=== PATIENT | male | born 1955 | race African-American/Black ===

== ENCOUNTER 2019-02-25 14:49 | Inpatient (IN) | payer MEDICAID ==
[~2019-02-25] VITALS: Ht 182.9 cm; Wt 99.8 kg
[2019-02-25] MEDS ORDERED: METFORMIN HCL500 M1 ORAL (14:55)
[2019-02-25 15:03] VITALS: BP 137/86
--- NOTE | 2019-02-25 15:03 | NUR ---
ED Nurse Note: PT BROUGHT IN BY RA [address] DUE TO FEELING OF WEAKNESS AFTER DRINKING 6 CANS OF BEER. HX OF DM. BS CHECK 129 PER EMS. AAO X4, AMBULATORY WITH NON LABORED BREATHING. NOTED SLURRING OF SPEECH.
--- NOTE | 2019-02-25 15:09 | Emergency Room Report ---
History of Present Illness General Chief Complaint: Generalized Weakness Source: EMS Present Illness HPI Disclaimer: Please note that this report is being documented using DRAGON technology. This can lead to erroneous entry secondary to incorrect interpretation by the dictating instrument. HPI: 63-year-old male with a history of diabetes, daily alcohol use, daily tobacco use presents for evaluation of generalized weakness. The patient is homeless and was brought in by EMS. He called stating he felt generally unwell and dehydrated. He admits to drinking approximately 6 beers today and states he drinks approximately 10 beers daily. He smokes cigarettes daily. He is complaining of mild shortness of breath. He is requesting something to eat and drink. He states he just feels "tired." Denies any specific complaints and denies any headache, visual changes, sore throat, fever, chills, chest pain, cough, abdominal pain, vomiting, diarrhea or recent rash. Denies swelling in the lower extremities. He was previously on metformin but has not been taking it for several years. Does not take any medications regularly anymore. PMH: Diabetes, alcohol use disorder PSH: Denies Allergies: None listed Social Hx: Daily alcohol use, daily tobacco use. Denies drug use Allergies: Coded Allergies: No Known Allergies (Unverified , 02/25/19) Nursing Documentation-PMH Past Medical History: No History, Except For Hx Diabetes: Yes Review of Systems All Other Systems: negative except mentioned in HPI Physical Exam Vital Signs Date Time Temp Pulse Resp B/P (MAP) Pulse Ox O2 Delivery O2 Flow Rate FiO2 02/25/19 14:53 97.9 110 18 149/95 (113) 99 Room Air General: Awake and alert, no acute distress, disheveled and unkempt HEENT: NC/AT. EOMI. dry mucous membranes. Poor dentition. Cardiovascular: Tachycardic. S1 and S2 normal. No murmur appreciated Resp: Normal work of breathing. No cough, wheezing or crackles appreciated Abdomen: Abdomen is soft, nondistended. Nontender Skin: Intact. No abrasions, laceration or rash over the exposed skin MSK: Normal tone and bulk. Moving all extremities. No obvious deformity. No lower extremity edema Neuro: Awake and alert. Mentating appropriately. No dysarthria. No facial droop. Able to ambulate safely. Medical Decision Making Diagnostic Impression: Primary Impression: Episode of generalized weakness Additional Impression: Elevated troponin ER Course 63-year-old male with history of daily alcohol use, diabetes with medication noncompliance for several years presents for evaluation of general weakness. Differential includes was not limited to dehydration, alcohol use, angina, ACS, medication noncompliance, electrolyte abnormality. He is requesting something to eat and drink and states he is dehydrated after drinking 6 beers earlier today and sitting out in the hot sun. It is in the mid 90s today and the patient is homeless. Will provide IV oral hydration as well as something to eat well we perform a metabolic work-up and obtain a chest x-ray and EKG as well for his complaint of weakness and exertional dyspnea. States he always feels somewhat short of breath but this is worse today. Laboratory Tests Test 02/25/19 15:25 02/25/19 15:35 02/25/19 18:40 Prothrombin Time 9.8 SEC (9.30-11.50) Prothrombin Time INR 0.9 (0.9-1.1) PTT 26 SEC (23-33) White Blood Count 4.5 K/UL (4.8-10.8) L Red Blood Count 4.05 M/UL (4.70-6.10) L Hemoglobin 13.4 G/DL (14.2-18.0) L Hematocrit 38.8 % (42.0-52.0) L Mean Corpuscular Volume 96 FL (80-99) Mean Corpuscular Hemoglobin 33.0 PG (27.0-31.0) H Mean Corpuscular Hemoglobin Concent 34.4 G/DL (32.0-36.0) Red Cell Distribution Width 10.9 % (11.6-14.8) L Platelet Count 321 K/UL (150-450) Mean Platelet Volume 6.8 FL (6.5-10.1) Neutrophils (%) (Auto) 44.3 % (45.0-75.0) L Lymphocytes (%) (Auto) 40.8 % (20.0-45.0) Monocytes (%) (Auto) 10.4 % (1.0-10.0) H Eosinophils (%) (Auto) 2.2 % (0.0-3.0) Basophils (%) (Auto) 2.2 % (0.0-2.0) H Urine Color Yellow Urine Appearance Clear Urine pH 5 (4.5-8.0) Urine Specific [place] 1.015 (1.005-1.035) Urine Protein 1+ (NEGATIVE) H Urine Glucose (UA) Negative (NEGATIVE) Urine Ketones Negative (NEGATIVE) Urine Blood 1+ (NEGATIVE) H Urine Nitrite Negative (NEGATIVE) Urine Bilirubin Negative (NEGATIVE) Urine Urobilinogen Normal MG/DL (0.0-1.0) Urine Leukocyte Esterase Negative (NEGATIVE) Urine RBC 0-2 /HPF (0 - 0) H Urine WBC 0-2 /HPF (0 - 0) Urine Squamous Epithelial Cells None /LPF (NONE/OCC) Urine Bacteria None /HPF (NONE) Sodium Level 146 MMOL/L (136-145) H Potassium Level 3.6 MMOL/L (3.5-5.1) Chloride Level 107 MMOL/L (98-107) Carbon Dioxide Level 24 MMOL/L (21-32) Anion Gap 15 mmol/L (5-15) Blood Urea Nitrogen 5 mg/dL (7-18) L Creatinine 0.9 MG/DL (0.55-1.30) Estimate Glomerular Filtration Rate > 60 mL/min (>60) Glucose Level 135 MG/DL (74-106) H Calcium Level 9.1 MG/DL (8.5-10.1) Total Bilirubin 0.4 MG/DL (0.2-1.0) Aspartate Amino Transferase (AST) 119 U/L (15-37) H Alanine Aminotransferase (ALT) 106 U/L (12-78) H Alkaline Phosphatase 59 U/L (46-116) Total Creatine Kinase 553 U/L (26-308) H Creatine Kinase MB 3.1 NG/ML (0.0-3.6) Creatine Kinase MB Relative Index 0.5 Troponin I 0.061 ng/mL (0.000-0.056) Pending Pro-B-Type Natriuretic Peptide 162 pg/mL (0-125) H Total Protein 7.2 G/DL (6.4-8.2) Albumin 3.7 G/DL (3.4-5.0) Globulin 3.5 g/dL Albumin/Globulin Ratio 1.1 (1.0-2.7) EKG Diagnostic Results EKG Time: 15:34 Rate: tachycardiac Rhythm: NSR ST Segments: no acute changes Other Impression Sinus rhythm, normal axis, normal intervals, no ST segment changes. PA Scribe Text EKG #2: [id number] Sinus rhythm, normal axis, normal intervals, no ST segment changes. Unchanged from first EKG. Rhythm Strip Diag. Results Rhythm Strip Time: 15:34 EP Interpretation: yes Rate: 100 Rhythm: NSR, no PVC's, no ectopy Chest X-Ray Diagnostic Results Chest X-Ray Diagnostic Results : Chest X-Ray Ordered: Yes Indication: Shortness of Breath EP Interpretation: Yes Interpretation: no consolidation, no effusion, no pneumothorax, no acute cardiopulmonary disease Impression: No acute disease CT/MRI/US Diagnostic Results CT/MRI/US Diagnostic Results : Impression Preliminary Findings Only See Final Report For Complete Findings CTA CHEST With Contrast: No pulmonary embolus identified. No aortic aneurysm or dissection. No acute pulmonary parenchymal abnormality identified. Borderline size of the heart. Mild bilateral gynecomastia. Hepatic steatosis. Probable hemangioma in the right liver. Small splenule. Radiologist: Miky Mclaughlin M.D. Reevaluation Time: 18:56 Last Vital Signs Date Time Temp Pulse Resp B/P (MAP) Pulse Ox O2 Delivery O2 Flow Rate FiO2 02/25/19 14:53 97.9 110 18 149/95 (113) 99 Room Air Reevaluation Impression Initial elevated troponin 0.061. The patient's EKG was unchanged. He remains slightly tachycardic and was complaining of shortness of breath and a CTA was ordered. No evidence of dissection or PE. Second troponin is pending. Patient 's vital signs are stable though remains slightly tachycardic. Started on heparin drip. Will admit to telemetry for further work-up and management. 2000: Patient second troponin was slightly higher than the first at 0.068. Will be admitted for monitoring and further intervention as needed. Vital signs remained stable. Disposition: ADMITTED INPATIENT Condition: Serious Giuseppe Ramírez MD Feb 25, 2019 15:09
--- NOTE | 2019-02-25 15:34 | NUR ---
ED Nurse Note: COLLECTED BLOOD/URINE THEN SENT.
[2019-02-25 15:59] LABS: BASOPHILS % (AUTO) 2.2 % (0.0-2.0); EOSINOPHILS % (AUTO) 2.2 % (0.0-3.0); HEMATOCRIT 38.8 % (42.0-52.0); HEMOGLOBIN 13.4 G/DL (14.2-18.0); LYMPHOCYTES % (AUTO) 40.8 % (20.0-45.0); MEAN CORPUSCULAR VOLUME 96 FL (80-99); MONOCYTES % (AUTO) 10.4 % (1.0-10.0); NEUTROPHILS % (AUTO) 44.3 % (45.0-75.0); PLATELET COUNT 321 K/UL (150-450); RED BLOOD COUNT 4.05 M/UL (4.70-6.10); RED CELL DISTRIBUTION WIDTH 10.9 % (11.6-14.8); WHITE BLOOD COUNT 4.5 K/UL (4.8-10.8)
[2019-02-25 16:01] LABS: APPEARANCE,URINE CLEAR; BILIRUBIN, URINE NEGATIVE (NEGATIVE); GLUCOSE, URINE (UA) NEGATIVE (NEGATIVE); KETONES,URINE NEGATIVE (NEGATIVE); LEUKOCYTE ESTERASE ,URINE NEGATIVE (NEGATIVE); NITRITE,URINE NEGATIVE (NEGATIVE); PH,URINE 5 (4.5-8.0); PROTEIN,URINE 1+ (NEGATIVE); UROBILINOGEN,URINE NORMAL MG/DL (0.0-1.0)
[2019-02-25 16:02] LABS: COLOR,URINE YELLOW
[2019-02-25 16:13] LABS: ANION GAP 15 mmol/L (5-15); BLOOD UREA NITROGEN 5 mg/dL (7-18); CALCIUM 9.1 MG/DL (8.5-10.1); CARBON DIOXIDE 24 MMOL/L (21-32); CHLORIDE 107 MMOL/L (98-107); CREATININE 0.9 MG/DL (0.55-1.30); POTASSIUM 3.6 MMOL/L (3.5-5.1); SODIUM 146 MMOL/L (136-145)
--- NOTE | 2019-02-25 16:27 | Diagnostic Imaging Report ---
Indication: Cough Technique: One view of the chest Comparison: none Findings: Lungs and pleural spaces are clear. Heart size is normal Impression: No acute process
[2019-02-25 16:30] LABS: ALANINE AMINOTRANSFERASE 106 U/L (12-78); ALBUMIN 3.7 G/DL (3.4-5.0); ALBUMIN/GLOBULIN RATIO 1.1 (1.0-2.7); ALKALINE PHOSPHATASE 59 U/L (46-116); ASPARTATE AMINO TRANSFERASE 119 U/L (15-37); BILIRUBIN,TOTAL 0.4 MG/DL (0.2-1.0); CKMB 3.1 NG/ML (0.0-3.6); CREATINE KINASE 553 U/L (26-308)
[2019-02-25] MEDS ORDERED: Heparin 25,000u/D5W 500ml 500 ML IV SCH (16:45)
[2019-02-25] MEDS ORDERED: Heparin 5000 units/ml inj IV ONE (16:45)
[2019-02-25] MEDS ORDERED: Aspirin Baby 81mg ORAL ONE (16:45)
[2019-02-25] MEDS ORDERED: Omnipaue 350mg/ml 100ml vial INJ PRN (17:00)
--- NOTE | 2019-02-25 17:35 | NUR ---
ED Nurse Note: PT TAKE TO CT VIA WHEELCHAIR AND STABLE.
[2019-02-25 18:08] LABS: INR 0.9 (0.9-1.1)
--- NOTE | 2019-02-25 18:40 | NUR ---
ED Nurse Note: REPEAT TROPONIN SENT.
--- NOTE | 2019-02-25 18:52 | Diagnostic Imaging Report ---
ndication: Shortness of breath Technique: IV administration nonionic contrast. Spiral acquisitions obtained from the lung bases to the lung apices. Multiplanar and 3-D reconstructions were generated. Total dose length product 1058 mGycm. CTDIvol(s) 94, 57, 19 mGy. Dose reduction achieved using automated exposure control Comparison: none Findings: Pulmonary arterial opacification is somewhat suboptimal clinical and small emboli could be missed. No definite intraluminal filling defects or other findings to suggest acute pulmonary embolus demonstrated. Normal caliber pulmonary arteries. No evidence of right ventricular dilatation. There is variant branching anatomy of common origin of the right brachiocephalic and left common carotid artery, otherwise normal anatomy and caliber of the great neck vessels. The visualized proximal visceral vessels are unremarkable. The lungs demonstrate a 2 mm nodule in the inferior left lower lobe, image 59 series 19. The lungs are otherwise clear. The pleural spaces are clear. There is equivocal mild distal esophageal wall thickening. The included portion of the thyroid is unremarkable. No mediastinal or hilar mass or adenopathy. The heart size is upper limits of normal. No pericardial effusion. No axillary or chest wall mass or adenopathy. The included upper abdominal anatomy demonstrates that the liver is diffusely hypoattenuating. In segment 7 of the liver, there is a round lesion that demonstrates peripheral enhancement. This measures 2.5 cm in diameter. There is a small accessory splenule incidentally noted. Impression: No evidence of acute pulmonary embolus or other acute thoracic pathology. Fatty liver 2.5 cm right lobe liver lesion, probably but not definitively a hemangioma. Consider further evaluation with hemangioma protocol CT or MRI The above findings are in agreement with the [facility] preliminary report provided overnight 2 mm left upper lobe nodule. If there is significant smoking history, follow-up CT in 6-12 months is recommended. This finding was discussed by phone with Dr. Rae in the emergency room at the time of interpretation The CT scanner at [facility] is accredited by the [employer] and the scans are performed using protocols designed to limit radiation exposure to as low as reasonably achievable to attain images of sufficient resolution adequate for diagnostic evaluation.
--- NOTE | 2019-02-25 19:02 | NUR ---
HAND-OFF: Report given to LAKISHA HINES.
--- NOTE | 2019-02-25 19:03 | NUR ---
ED Nurse Note: report received from DONNY Esquivel. pt is in bed resting. VSS
[2019-02-25] MEDS ORDERED: Nitroglycerin Subl 0.4mg tab SL PRN (20:00)
[2019-02-25] MEDS ORDERED: Morphine Sulfate 2mg/ml Inj(IV/IM USE ONLY) IVP PRN (20:00)
[2019-02-25] MEDS ORDERED: dilTIAZem HCl 25mg/5ml Inj IV PRN (20:00)
[2019-02-25] MEDS ORDERED: Albuterol/Ipratropium 3ml neb HHN PRN (20:00)
[2019-02-25] MEDS ORDERED: Miralax 17gm pkt ORAL PRN (20:00)
[2019-02-25] MEDS ORDERED: Enalaprilat 1.25mg/ml Inj IV PRN (20:00)
--- NOTE | 2019-02-25 20:22 | NUR ---
ED Nurse Note: pt was broguht up to tele room 216 accompanied by RN and SUPER[employer] with monitor box via [employer] in stable condition. IV site is intact. belonging list signed.
--- NOTE | 2019-02-25 20:45 | NUR ---
NURSE NOTES: RECEIVED PATIENT FROM ER. PATIENT ALERT AND ORIENTED X3, DENIES CHEST PAIN OR SOB AT THIS TIME. BELONGINGS CHECKED WITH ER NURSE. PLACED PATIENT ON TELE, SR ON A MONITOR. FALL PRECAUTIONS IN PLACE: CALL LIGHT, BEDSIDE TABLE AND URINAL WITHIN REACH, BED IN LOW POSITION . PLAN OF CARE REVIEWED.
[2019-02-25 21:00] VITALS: BP 158/100
--- NOTE | 2019-02-25 21:15 | NUR ---
NURSE NOTES: DR. LINCOLN HERE TO SEE PATIENT. PER DR. LINCOLN TO DISCONTINUE HEPARIN DRIP AND START HEP 5000 UNITS SC IN AM. ORDER NOTED AND CARRY OUT.
--- NOTE | 2019-02-25 21:23 | Cardiology Progress Note ---
Assessment/Plan Assessment/Plan [id number] Objective Last 24 Hour Vital Signs Date Time Temp Pulse Resp B/P (MAP) Pulse Ox O2 Delivery O2 Flow Rate FiO2 02/25/19 20:22 98.5 91 18 132/88 97 Room Air 02/25/19 15:03 105 16 Room Air 02/25/19 15:03 97.9 110 16 137/86 97 Room Air 02/25/19 14:53 97.9 110 18 149/95 (113) 99 Room Air Laboratory Tests Test 02/25/19 15:25 02/25/19 15:35 02/25/19 18:40 Prothrombin Time 9.8 SEC (9.30-11.50) Prothromb Time International Ratio 0.9 (0.9-1.1) Activated Partial Thromboplast Time 26 SEC (23-33) White Blood Count 4.5 K/UL (4.8-10.8) L Red Blood Count 4.05 M/UL (4.70-6.10) L Hemoglobin 13.4 G/DL (14.2-18.0) L Hematocrit 38.8 % (42.0-52.0) L Mean Corpuscular Volume 96 FL (80-99) Mean Corpuscular Hemoglobin 33.0 PG (27.0-31.0) H Mean Corpuscular Hemoglobin Concent 34.4 G/DL (32.0-36.0) Red Cell Distribution Width 10.9 % (11.6-14.8) L Platelet Count 321 K/UL (150-450) Mean Platelet Volume 6.8 FL (6.5-10.1) Neutrophils (%) (Auto) 44.3 % (45.0-75.0) L Lymphocytes (%) (Auto) 40.8 % (20.0-45.0) Monocytes (%) (Auto) 10.4 % (1.0-10.0) H Eosinophils (%) (Auto) 2.2 % (0.0-3.0) Basophils (%) (Auto) 2.2 % (0.0-2.0) H Urine Color Yellow Urine Appearance Clear Urine pH 5 (4.5-8.0) Urine Specific [place] 1.015 (1.005-1.035) Urine Protein 1+ (NEGATIVE) H Urine Glucose (UA) Negative (NEGATIVE) Urine Ketones Negative (NEGATIVE) Urine Blood 1+ (NEGATIVE) H Urine Nitrite Negative (NEGATIVE) Urine Bilirubin Negative (NEGATIVE) Urine Urobilinogen Normal MG/DL (0.0-1.0) Urine Leukocyte Esterase Negative (NEGATIVE) Urine RBC 0-2 /HPF (0 - 0) H Urine WBC 0-2 /HPF (0 - 0) Urine Squamous Epithelial Cells None /LPF (NONE/OCC) Urine Bacteria None /HPF (NONE) Sodium Level 146 MMOL/L (136-145) H Potassium Level 3.6 MMOL/L (3.5-5.1) Chloride Level 107 MMOL/L (98-107) Carbon Dioxide Level 24 MMOL/L (21-32) Anion Gap 15 mmol/L (5-15) Blood Urea Nitrogen 5 mg/dL (7-18) L Creatinine 0.9 MG/DL (0.55-1.30) Estimat Glomerular Filtration Rate > 60 mL/min (>60) Glucose Level 135 MG/DL (74-106) H Calcium Level 9.1 MG/DL (8.5-10.1) Total Bilirubin 0.4 MG/DL (0.2-1.0) Aspartate Amino Transf (AST/SGOT) 119 U/L (15-37) H Alanine Aminotransferase (ALT/SGPT) 106 U/L (12-78) H Alkaline Phosphatase 59 U/L (46-116) Total Creatine Kinase 553 U/L (26-308) H Creatine Kinase MB 3.1 NG/ML (0.0-3.6) Creatine Kinase MB Relative Index 0.5 Troponin I 0.061 ng/mL (0.000-0.056) 0.068 ng/mL (0.000-0.056) Pro-B-Type Natriuretic Peptide 162 pg/mL (0-125) H Total Protein 7.2 G/DL (6.4-8.2) Albumin 3.7 G/DL (3.4-5.0) Globulin 3.5 g/dL Albumin/Globulin Ratio 1.1 (1.0-2.7) Microbiology Date/Time Source Procedure Growth Status 02/25/19 18:30 Rectum Received Jorje Wong MD Feb 25, 2019 21:23
[2019-02-26] VITALS: BP 130/67
[2019-02-26 04:00] VITALS: BP 148/100
[2019-02-26 06:46] LABS: BASOPHILS % (AUTO) 2.1 % (0.0-2.0); EOSINOPHILS % (AUTO) 2.2 % (0.0-3.0); HEMATOCRIT 40.9 % (42.0-52.0); HEMOGLOBIN 13.6 G/DL (14.2-18.0); LYMPHOCYTES % (AUTO) 21.7 % (20.0-45.0); MEAN CORPUSCULAR VOLUME 99 FL (80-99); NEUTROPHILS % (AUTO) 66.9 % (45.0-75.0); PLATELET COUNT 311 K/UL (150-450); RED BLOOD COUNT 4.13 M/UL (4.70-6.10); RED CELL DISTRIBUTION WIDTH 12.3 % (11.6-14.8)
[2019-02-26 07:04] LABS: INR 0.9 (0.9-1.1)
[2019-02-26 07:24] LABS: ANION GAP 5 mmol/L (5-15); BLOOD UREA NITROGEN 6 mg/dL (7-18); CALCIUM 8.4 MG/DL (8.5-10.1); CARBON DIOXIDE 30 MMOL/L (21-32); CHLORIDE 102 MMOL/L (98-107); CREATININE 0.9 MG/DL (0.55-1.30); POTASSIUM 4.2 MMOL/L (3.5-5.1); SODIUM 137 MMOL/L (136-145)
--- NOTE | 2019-02-26 07:28 | NUR ---
HAND-OFF: Report given to Padma ALDRIDGE RN. PATIENT WATCHING TV, NO SIGNS OF DISTRESS NOTED.
[2019-02-26 07:31] LABS: CHOLESTEROL 177 MG/DL (< 200); HDL CHOLESTEROL 85 MG/DL (40-60); TRIGLYCERIDES 54 MG/DL (30-150)
--- NOTE | 2019-02-26 07:51 | NUR ---
NURSE NOTES: Received report from DONNY Ward. Patient in bed resting, no active s/s cardiac, respiratory distress noticed at this time. Patient AOx4, on room air, SR with HR 99, denies chest pain at this time. IV on left AC 20G, asymptomatic, patent, intact. Endorsed MD aware of elevated troponin level. Bed in lowest position, side rails upx2, call light within reach, bed alarm on. Will continue to monitor.
[2019-02-26 08:00] VITALS: BP 146/77
[2019-02-26] MEDS ORDERED: Aspirin Baby 81mg ORAL SCH (09:00)
[2019-02-26] MEDS ORDERED: Heparin 5000 units/ml inj SUBQ SCH (09:00)
--- NOTE | 2019-02-26 11:13 | NUR ---
Social Work This SW received a consult due to patient is homeless. This Sw met with patient who remains independent and denied that he is homeless. Patient plans to discharge to home with his aunt and cousin at the following address: [address] [place] [id number] No other needs or concerns identified at this time. Mounika, Bacteriology Teacher informed. Addendum: 02/26/19 at 1244 by SHELLIE MCGEE Please Disregard note (wrong patient).
--- NOTE | 2019-02-26 11:13 | History and Physical ---
History of Present Illness General Date patient seen: Feb 26, 2019 Reason for Hospitalization: Generalized Weakness Present Illness HPI 63-year-old male with a history of diabetes, daily alcohol use, daily tobacco use presents for evaluation of generalized weakness. The patient is homeless and was brought in by EMS. He called stating he felt generally unwell and dehydrated. He admits to drinking approximately 6 beers today and states he drinks approximately 10 beers daily. He smokes cigarettes daily. He is requesting something to eat and drink. He states he just feels "tired." He has rested overnight and feeling better now. Allergies: Coded Allergies: No Known Allergies (Unverified , 02/25/19) Medication History Scheduled Metformin Hcl* (Metformin Hcl*), Unknown Dose ORAL TWICE A DAY, (Reported) Patient History Healthcare decision maker Resuscitation status Full Code Advanced Directive on File Past Medical/Surgical History Past Medical/Surgical History: (1) Diabetes mellitus (2) ETOH abuse Review of Systems All Other Systems: negative except mentioned in HPI Physical Exam General Appearance: WD/WN Lines, tubes and drains: peripheral HEENT: normocephalic, atraumatic Neck: non-tender, normal alignment Respiratory/Chest: chest wall non-tender, lungs clear Abdomen: normal bowel sounds Genitourinary/Rectal: normal genital exam, heme negative stool Last 24 Hour Vital Signs Date Time Temp Pulse Resp B/P (MAP) Pulse Ox O2 Delivery O2 Flow Rate FiO2 02/26/19 09:35 86 20 99 Room Air 21 02/26/19 09:00 Room Air 02/26/19 08:00 98.8 85 20 146/77 (100) 95 02/26/19 08:00 96 02/26/19 04:00 99 02/26/19 04:00 98.0 97 21 148/100 (116) 99 02/26/19 00:00 85 02/26/19 00:00 97.9 80 20 130/67 (88) 99 02/25/19 23:00 Room Air 02/25/19 21:00 98.1 95 20 158/100 (119) 97 02/25/19 20:40 98 02/25/19 20:22 98.5 91 18 132/88 97 Room Air 02/25/19 15:03 105 16 Room Air 02/25/19 15:03 97.9 110 16 137/86 97 Room Air 02/25/19 14:53 97.9 110 18 149/95 (113) 99 Room Air Intake and Output 02/25/19 02/26/19 19:00 07:00 Intake Total 1027.90 ml 503.95 ml Balance 1027.90 ml 503.95 ml Intake Oral 480 ml IV Total 1027.90 ml 23.95 ml # Voids 1 3 Laboratory Tests Test 02/25/19 15:25 02/25/19 15:35 02/25/19 18:40 02/26/19 06:20 Prothrombin Time 9.8 SEC (9.30-11.50) 9.9 SEC (9.30-11.50) Prothromb Time International Ratio 0.9 (0.9-1.1) 0.9 (0.9-1.1) Activated Partial Thromboplast Time 26 SEC (23-33) 26 SEC (23-33) White Blood Count 4.5 K/UL (4.8-10.8) L 6.0 K/UL (4.8-10.8) Red Blood Count 4.05 M/UL (4.70-6.10) L 4.13 M/UL (4.70-6.10) L Hemoglobin 13.4 G/DL (14.2-18.0) L 13.6 G/DL (14.2-18.0) L Hematocrit 38.8 % (42.0-52.0) L 40.9 % (42.0-52.0) L Mean Corpuscular Volume 96 FL (80-99) 99 FL (80-99) Mean Corpuscular Hemoglobin 33.0 PG (27.0-31.0) H 32.8 PG (27.0-31.0) H Mean Corpuscular Hemoglobin Concent 34.4 G/DL (32.0-36.0) 33.2 G/DL (32.0-36.0) Red Cell Distribution Width 10.9 % (11.6-14.8) L 12.3 % (11.6-14.8) Platelet Count 321 K/UL (150-450) 311 K/UL (150-450) Mean Platelet Volume 6.8 FL (6.5-10.1) 6.8 FL (6.5-10.1) Neutrophils (%) (Auto) 44.3 % (45.0-75.0) L 66.9 % (45.0-75.0) Lymphocytes (%) (Auto) 40.8 % (20.0-45.0) 21.7 % (20.0-45.0) Monocytes (%) (Auto) 10.4 % (1.0-10.0) H 7.0 % (1.0-10.0) Eosinophils (%) (Auto) 2.2 % (0.0-3.0) 2.2 % (0.0-3.0) Basophils (%) (Auto) 2.2 % (0.0-2.0) H 2.1 % (0.0-2.0) H Urine Color Yellow Urine Appearance Clear Urine pH 5 (4.5-8.0) Urine Specific [place] 1.015 (1.005-1.035) Urine Protein 1+ (NEGATIVE) H Urine Glucose (UA) Negative (NEGATIVE) Urine Ketones Negative (NEGATIVE) Urine Blood 1+ (NEGATIVE) H Urine Nitrite Negative (NEGATIVE) Urine Bilirubin Negative (NEGATIVE) Urine Urobilinogen Normal MG/DL (0.0-1.0) Urine Leukocyte Esterase Negative (NEGATIVE) Urine RBC 0-2 /HPF (0 - 0) H Urine WBC 0-2 /HPF (0 - 0) Urine Squamous Epithelial Cells None /LPF (NONE/OCC) Urine Bacteria None /HPF (NONE) Sodium Level 146 MMOL/L (136-145) H 137 MMOL/L (136-145) Potassium Level 3.6 MMOL/L (3.5-5.1) 4.2 MMOL/L (3.5-5.1) Chloride Level 107 MMOL/L (98-107) 102 MMOL/L (98-107) Carbon Dioxide Level 24 MMOL/L (21-32) 30 MMOL/L (21-32) Anion Gap 15 mmol/L (5-15) 5 mmol/L (5-15) Blood Urea Nitrogen 5 mg/dL (7-18) L 6 mg/dL (7-18) L Creatinine 0.9 MG/DL (0.55-1.30) 0.9 MG/DL (0.55-1.30) Estimat Glomerular Filtration Rate > 60 mL/min (>60) > 60 mL/min (>60) Glucose Level 135 MG/DL (74-106) H 140 MG/DL (74-106) H Calcium Level 9.1 MG/DL (8.5-10.1) 8.4 MG/DL (8.5-10.1) L Total Bilirubin 0.4 MG/DL (0.2-1.0) Aspartate Amino Transf (AST/SGOT) 119 U/L (15-37) H Alanine Aminotransferase (ALT/SGPT) 106 U/L (12-78) H Alkaline Phosphatase 59 U/L (46-116) Total Creatine Kinase 553 U/L (26-308) H Creatine Kinase MB 3.1 NG/ML (0.0-3.6) Creatine Kinase MB Relative Index 0.5 Troponin I 0.061 ng/mL (0.000-0.056) 0.068 ng/mL (0.000-0.056) 0.054 ng/mL (0.000-0.056) Pro-B-Type Natriuretic Peptide 162 pg/mL (0-125) H Total Protein 7.2 G/DL (6.4-8.2) Albumin 3.7 G/DL (3.4-5.0) Globulin 3.5 g/dL Albumin/Globulin Ratio 1.1 (1.0-2.7) C-Reactive Protein, Quantitative 0.8 mg/dL (0.00-0.90) Triglycerides Level 54 MG/DL (30-150) Cholesterol Level 177 MG/DL (< 200) LDL Cholesterol 82 mg/dL (<100) HDL Cholesterol 85 MG/DL (40-60) H Cholesterol/HDL Ratio 2.1 (3.3-4.4) L Thyroid Stimulating Hormone (TSH) 0.727 uiU/mL (0.358-3.740) Microbiology Date/Time Source Procedure Growth Status 02/25/19 18:30 Rectum Received Height (Feet): 6 Height (Inches): 0.00 Weight (Pounds): 220 Medications Current Medications Medications (Trade) Dose Ordered Sig/Serenity Route PRN Reason Start Time Stop Time Status Last Admin Dose Admin Acetaminophen (Tylenol) 650 mg Q4H PRN ORAL FEVER 02/25/19 20:00 03/27/19 19:59 Albuterol/ Ipratropium (Albuterol/ Ipratropium) 3 ml Q4H PRN HHN Shortness of Breath 02/25/19 20:00 03/02/19 19:59 Aspirin (ASA) 162 mg DAILY ORAL 02/26/19 09:00 03/28/19 08:59 02/26/19 08:23 Atorvastatin Calcium (Lipitor) 20 mg BEDTIME ORAL 02/26/19 21:00 03/28/19 20:59 Diltiazem HCl (Cardizem) 10 mg Q1H PRN IV heart rate more than 120, 02/25/19 20:00 03/27/19 19:59 Enalaprilat (Vasotec) 2.5 mg Q6H PRN IV sbp more than 160 02/25/19 20:00 03/27/19 19:59 Heparin Sodium (Porcine) (Heparin 5000 units/ml) 5,000 units EVERY 12 HOURS SUBQ 02/26/19 09:00 03/28/19 08:59 02/26/19 08:26 Iohexol (Omnipaque) 100 mg NOW PRN INJ Radiology Procedure 02/25/19 17:00 02/27/19 16:58 Morphine Sulfate (Morphine Sulfate) 2 mg Q4H PRN IVP severe Pain (Pain Scale 7-10) 02/25/19 20:00 03/04/19 19:59 Nitroglycerin (Ntg) 0.4 mg Q5M PRN SL Prn Chest Pain 02/25/19 20:00 03/27/19 19:59 Ondansetron HCl (Zofran) 4 mg Q6H PRN IVP Nausea & Vomiting 02/25/19 20:00 03/27/19 19:59 Polyethylene Glycol (Miralax) 17 gm DAILYPRN PRN ORAL Constipation 02/25/19 20:00 03/27/19 19:59 Temazepam (Restoril) 15 mg HSPRN PRN ORAL Insomnia 02/25/19 20:00 03/04/19 19:59 Assessment/Plan Problem List: (1) Diabetes mellitus ICD Codes: E11.9 - Type 2 diabetes mellitus without complications SNOMED: 42587567 (2) Non-compliance ICD Codes: Z91.19 - Patient's noncompliance with other medical treatment and regimen SNOMED: 9221196 (3) Homeless ICD Codes: Z59.0 - Homelessness SNOMED: 66201275 (4) ETOH abuse ICD Codes: F10.10 - Alcohol abuse, uncomplicated SNOMED: 00671421 Assessment/Plan: resume metformin,which pt used to take cardio note appreciated pt wants to leave today. Milla Burger MD Feb 26, 2019 11:13
[2019-02-26] MEDS ORDERED: METFORMIN500 MG/5 M PO (11:15)
--- NOTE | 2019-02-26 11:20 | NUR ---
NURSE NOTES: Called social services counselor regarding discharge order. Dr. Burger made aware patient is homeless.
--- NOTE | 2019-02-26 11:54 | Consultation ---
DATE OF CONSULTATION: 02/25/2019 CARDIOLOGY CONSULTATION CONSULTING PHYSICIAN: Jorje Wong M.D. REFERRING PHYSICIAN: Milla Burger M.D. REASON FOR REFERRAL: Abnormal cardiac enzymes. HISTORY OF PRESENT ILLNESS: This is an elderly gentleman who is homeless. For the past 2 months, he has had intermittent episodes of shortness of breath. Over the past 2 weeks, he has had episodes of chest pain that he describes a sharp sensation to the left side of the chest that lasts only a few seconds. Does get worse with twisting, turning, moving around, taking a deep breath, or coughing. The pain did not last more than a few seconds according to himself. The patient does walk around. Does have shortness of breath on exertion, but no real chest pain with exertion. He has some orthopnea. There is no PND episodes. Does have dizziness or lightheadedness when he sits up or stands up from a bent down position tying his shoe laces. No heart pounding or palpitations. PAST MEDICAL HISTORY: Diabetes, not taking any medication for 2 years. No high blood pressure. No heart attack. No cancer. No stroke. No hepatitis or tuberculosis. No asthma or emphysema. No ulcers, kidney problems, liver problems, thyroid problems, anemia, arthritis, HIV, or AIDS. ALLERGIES: He is not allergic to any medications. SOCIAL HISTORY: Smoking history, he is now smoking 3 cigarettes 1 pack per day. He drinks a 12 pack on a daily basis and denies any drug use. REVIEW OF SYSTEMS: GASTROINTESTINAL: He has had some constipation. GENITOURINARY: He denies. PULMONARY: Some coughing. CONSTITUTIONAL: He has had approximately 30 pounds weight loss over the past 2 months. PHYSICAL EXAMINATION: GENERAL: Shows to be elderly gentleman, overweight. NECK: Supple. No jugular venous distention. LUNGS: Rhonchi noted. Decreased breath sounds noted bilaterally. Some crackles on the right base. CARDIAC: Regular rate and rhythm. No heaves or thrills noted. ABDOMEN: Soft, nontender. Positive bowel sounds. EXTREMITIES: No edema. NEUROLOGICAL: He is awake, alert, responsive, and in no apparent respiratory distress. LABORATORY VALUES: Unfortunately, EKG is not available for review. Did have a CT scan of the chest with contrast that showed no pulmonary embolism. No aortic aneurysm or dissection. No acute pulmonary parenchymal abnormalities. Borderline size of the heart. Bilateral gynecomastia. Hepatic steatosis. Hepatic meningioma and small splenule. His blood tests, white count 4.5, hemoglobin 13.4, and platelet count 321. Sodium is 146, potassium 3.3, chloride 107, bicarb 24, BUN 5, creatinine 0.9, glucose of 135. AST 119, ALT of 106, alkaline phosphatase is 259, and CK of 553. ProBNP only 162. Troponin 0.61 and then subsequently 0.68. A chest x-ray performed in the emergency room shows no acute processes. ASSESSMENT AND PLAN: 1. Atypical chest pain. 2. Shortness of breath, COPD. 3. History of tobacco use disorder. 4. History of alcohol abuse. 5. Weight loss. This patient was seen in cardiac consultation. The patient's description of the pain is more suggestive of musculoskeletal pain. Unfortunately, I do not have any EKGs to review at this time. We will order 1 for tomorrow morning. His pains are not typical of coronary ischemic pain and as such, I do not think he needs an anticoagulation with heparin at this time. He probably should be treated for the underlying possible COPD exacerbation and echocardiogram will be ordered and EKG will also be ordered for tomorrow morning. The emergency physician has indicated that EKG is not changed from before. He needs to have diabetic diet and needs to be treated as such for diabetes. Jorje Wong M.D. DR: STELLA JOB#: [id number] CC:
[2019-02-26 12:00] VITALS: BP 144/79
--- NOTE | 2019-02-26 12:44 | NUR ---
Social Work This Sw received a consult due to homelessness. This SW met with patient who is requesting to return to the street; requesting bus tokens. This SW provided list of homeless resources and medical clinics (patient explains he does not have a primary MD clinic to follow up with, but will plan to follow up at one of the clinics provided to patient). Patient denied any substance abuse or mental health concerns and remains alert/oriented x4, independent with ADLs/ambulation. Two bus tokens provided. Nursing aware. No other needs/concerns at this time.
--- NOTE | 2019-02-26 14:20 | NUR ---
NURSE NOTES: Faxed prescription paper, metformin, to [facility]. Medication delivered to the patient, education regarding med provided.
--- NOTE | 2019-02-26 15:14 | NUR ---
HOMELESS COORDINATOR HC spoke with patient and patient is alert and oriented. Patient does have a contact number . Patient states he is chronically homeless and has been stying near [facility]. Patient will like resources for a retirement. Patient state hes has been homeless for 2 years due to alcohol abuse. Patient does have a contact lens technician, Landy Ortez, Mother . Patient states he does not have any income and will go to the [facility] office this week to apply for GR and SSI. Patient states he does not suffer from any mental health issues. Patient states he received bus token and will try to go to a retirement tonight if discharged. Patient continues to require medical intervention. Will continue to monitor and assist as needed.
[2019-02-26 16:00] VITALS: BP 155/95
--- NOTE | 2019-02-26 16:30 | NUR ---
NURSE NOTES: Patient discharged per Dr. Burger. Patient AOX4, Patient ID removed and placed in shredder. IV removed and family and consumer science professor returned to diagnostics tech. Patient taking bus per patient's preference in a stable condition. Bus token provided, information regard fpc and homeless resources provided to the patient, patient educated regard s/s chest pain, short of breath, generalized weakness. Patient prescribed medication, metformin, provided, discharge instruction provided, patient wear weather appropriate clothing.
[2019-02-26] MEDS ORDERED: Atorvastatin 20mg tab ORAL SCH (21:00)
--- NOTE | 2019-02-28 10:56 | Discharge Summary ---
Discharge Summary Discharge Summary _ DATE OF ADMISSION: 02/25/2019 DATE OF DISCHARGE: 02/26/2019 ADMITTING MD: Dr. Bhanu Jordan DISCHARGED BY: Dr. Milla Burger CONSULTANTS: Dr. Milla Wong [facility] HOSPITAL COURSE: Patient is a 63-year-old male, with history of diabetes, daily alcohol use, daily tobacco use, presented to ED for evaluation of generalized weakness. Patient was homeless and was brought in by EMS. He was feeling unwell and dehydrated. Repeat still drinking approximately 6 beers. States he drinks approximately 10 beers daily. He smokes cigarettes daily. He is complaining of mild shortness of breath. He feels tired. Denies any specific complaints, denies headache, visual changes, sore throat, fever, chills, chest pain, cough, abdominal pain, vomiting, diarrhea or rash. Denies swelling in the lower extremities. He was previously on metformin, but has not been taking it for several years. He does not currently take any medications. On evaluation at the ED, blood work did not show any leukocytosis. Hemoglobin and hematocrit. Electrolytes were normal. Troponin was elevated to 0.061. EKG showed sinus rhythm with normal axis and no ST segment changes. Chest x- ray did not show any acute disease. He remained tachycardic and was complaining of shortness of breath. There was no evidence of dissection or PE. Second troponin was slightly higher at 0.068. Heparin drip was started. He was then admitted to telemetry for further evaluation. He was placed on clinical research monitor. He was seen by turnstile collector. Patient had episodes of to the left side of the chest that lasts for a few seconds. Symptoms get worse with twisting, turning, moving a deep breath or coughing. Patient had shortness of breath on exertion, but no real chest pain with exertion. He was given aspirin and Lipitor. Patient's description of pain was suggestive of musculoskeletal pain. He was taken off heparin drip. Troponin eventually normalized. Social service was consulted for aid discharge needs. Patient eventually cleared for discharge. FINAL DIAGNOSES: Chest pain, musculoskeletal in origin Diabetes mellitus Noncompliance Homelessness EtOH abuse DISPOSITION: The treating physician assessed that the patient is medically stable for discharge to an outstretched disposition. DISCHARGE MEDICATIONS: Refer to Discharge Medication List. DISCHARGE INSTRUCTIONS: Follow-up with PCP in a week. I have been assigned to complete a discharge summary on this account, I was not involved with the patient's management.--LIU Yañez Jacqueline Robles NP Feb 28, 2019 10:56
--- NOTE | 2019-03-02 16:35 | Cardiology Report ---
APPROVED REPORT EXAM: Two-dimensional and M-mode echocardiogram with Doppler and color Doppler. INDICATION Left ventricular function M-Mode DIMENSIONS IVSd1.2 (0.7-1.1cm)Left Atrium (MM)3.3 (1.6-4.0cm) LVDd4.2 (3.5-5.6cm)Aortic Root3.3 (2.0-3.7cm) PWd1.3 (0.7-1.1cm)Aortic Cusp Exc.2.5 (1.5-2.0cm) LVDs3.2 (2.5-4.0cm) PWs1.9 cm Technically difficult study Normal left ventricular chamber size, systolic function and wall motion to the extent visualized . Left ventricular ejection fraction estimated to be 55 %. Mild left ventricular hypertrophy. Anterior Echo-free space, may be due to pericardial fat or effusion. All other cardiac chamber sizes are within normal limits. Mild focal aortic valve sclerosis with adequate cusp excursion. Thickened mitral valve leaflets with normal excursion. Mild mitral annulus and aortic root calcification. Pulmonic valve not well visualized. Normal tricuspid valve structure. IVC is normal in size with physiological collapse. Vlaves are poorly visualized A color flow and spectral Doppler study was performed and revealed: No aortic insufficiency. No mitral regurgitation. Mitral diastolic velocities suggest mild left ventricular diastolic dysfunction (Grade I). No tricuspid regurgitation.
--- NOTE | 2019-03-02 17:03 | Cardiology Report ---
APPROVED REPORT EKG Measurement Heart [id number] FL [id number] Sinus rhythm with marked sinus arrhythmia Minimal voltage criteria for LVH, may be normal variant Inferior infarct, age undetermined Abnormal ECG
--- NOTE | 2019-03-02 17:05 | Cardiology Report ---
APPROVED REPORT EKG Measurement Heart [id number] MD [id number] Normal sinus rhythm Prolonged QT Abnormal ECG
--- NOTE | 2019-03-02 17:06 | Cardiology Report ---
APPROVED REPORT EKG Measurement Heart [id number] [place] 170P45 [id number] Normal sinus rhythm Possible Anterior infarct, age undetermined Abnormal ECG
== END 2019-02-26 16:15 | disposition home or self-care (01) | DRG 203 ==
LOC: EDBD 14:49 → EMR 15:10 → EDBD 15:10 → 2E 17:06 → EDBEDREQ 19:51
DX: R07.89 Other chest pain (principal); R53.1 Weakness; E11.9 Type 2 diabetes mellitus without complications; Z59.0 Homelessness; Z79.84 Long term (current) use of oral hypoglycemic drugs; Z91.19 Patient's noncompliance with other medical treatment and regimen; F10.10 Alcohol abuse, uncomplicated; E86.0 Dehydration; F17.200 Nicotine dependence, unspecified, uncomplicated; J44.9 Chronic obstructive pulmonary disease, unspecified
CPT/HCPCS: 36415; 71045; 71275; 80048; 80053; 80061; 81003; 82550; 82553; 82962; 83880; 84443; 84484; 85025; 85610; 85730; 86140; 87081; 93005; 93306; 94664; 96361; 96365; 96366; 96375; 99285; J7030